=== PATIENT | female | born 1945 | race Caucasian/White ===

== ENCOUNTER 2019-08-19 08:27 | Outpatient (CLI) | payer MEDICARE, OTHER, SELFPAY ==
--- NOTE | 2019-08-19 08:40 | XR_ITS ---
WS: [id number] LEFT HIP HISTORY: HIP PAIN, LEFT Chronic, sciatica, BACK PAIN, LUMBAR pain COMPARISON: 12/17/2012 LEFT hip: No acute fracture or dislocation. Very minimal sclerosis along the superior acetabulum, sim ilar to the prior study. No bone destruction. No soft tissue abnormality. XR/XR hip LT 2-3V wo/w pel* [id number] IMPRESSION: 1. No hip fracture. 2. Minimal LEFT hip osteoarthritis. No progression since 12/17/2012.
--- NOTE | 2019-08-19 08:40 | XR_ITS ---
WS: [id number] LUMBAR SPINE: 3 VIEWS TECHNIQUE: AP, lateral and L5-S1 spot. HISTORY: HIP PAIN, LEFT Chronic, sciatica, BACK PAIN, LUMBAR pain. COMPARISON: 12/17/2012 Rotoscoliosis with convexity to the LEFT. Moderate scoliosis with mild progression of curvature since the prior study. Advanced degenerative disc disease and facet arthropathy at L5-S1. Otherwise asymme tric disc space narrowing is mild. No fractures. SI joints are symmetric bilaterally. No soft tissue abnormalities. Prior cholecystectomy. XR/XR lumbar spine 2-3V* [id number] IMPRESSION: 1. Mild progression of LEFT convex rotoscoliosis lumbar spine since 12/17/2012. 2. Advanced facet arthropathy and disc space narrowing at L5-S1. 3. Prior cholecystectomy.
== END 2019-08-19 08:28 | disposition home or self-care (01) ==
LOC: RADWPI 08:36
PROVIDERS: Family Provider Electrodiagnostic Medicine; PCP Electrodiagnostic Medicine; Visit Provider Electrodiagnostic Medicine
DX: M48.07 Spinal stenosis, lumbosacral region (principal); M16.12 Unilateral primary osteoarthritis, left hip; M54.32 Sciatica, left side; M54.16 Radiculopathy, lumbar region
CPT/HCPCS: 72100; 73502

== ENCOUNTER 2019-09-24 10:48 | Outpatient (CLI) | payer MEDICARE, OTHER, SELFPAY ==
--- NOTE | 2019-09-24 10:52 | MR_ITS ---
WS: [id number] MRI LUMBAR SPINE NONCONTRAST TECHNIQUE: Sagittal T1, T2 and STIR imaging. Axial T1 and T2 imaging. CLINICAL INFORMATION: BACK PAIN,LUMBAR WITH RADICULOPATHY, SCOLIOSIS FINDINGS: Advanced lumbar scoliosis convex left. Grade 1 anterolisthesis L5 on S1 measuring 4.8 mm. L1-L2: Mild annular bulging. Mild facet arthropathy. Spinal canal and foramen are patent. L2-L3: Mild annular bulging. Mild facet arthropathy. Spinal canal and foramen are patent. L3-L4: Mild annular bulging with narrowing of the subarticular recess bilaterally. Encroachment trave rsing L4 nerve roots. Moderate facet arthropathy. Mild right and no significant left foraminal narrow ing. Moderate facet arthropathy. L4-L5: Mild disc bulging with impingement left subarticular recess and traversing left L5 nerve root. Advanced left facet arthropathy. Mild bilateral foraminal narrowing. Mild central canal stenosis. L5-S1: 4.8 mm anterolisthesis L5 on S1. Mild annular bulging with slight effacement of the ventral th ecal sac. Advanced facet arthropathy. Moderate left foraminal narrowing. Extensive prior postoperative changes cervical fusion.Partially visualized indeterminant left renal l esion measuring 1.9 x 1.5 CM. This appears partially cystic but with suggestion of soft tissue nodula rity laterally only partially included. Recommend further evaluation with CT abdomen pelvis contrast or ultrasound. MR/MR lumbar spine wo con* [id number] IMPRESSION: 1. Advanced lumbar scoliosis convex left. No acute compression fractures. 2. Grade 1 anterolisthesis L5 on S1 measuring 4.8 mm with moderate left forami nal narrowing. Contact of the exiting left L5 nerve root with advanced left fac et arthropathy and osteophytic ridging. Correlation for left L5 nerve root symp toms. 3. Annular bulging L3-4 with slight impingement on the traversing right greate r than left L4 nerve roots in the subarticular recess. 4. Mild central canal stenosis L4-5 with impingement on the traversing left L5 nerve root in the subarticular recess. Moderate to advanced left facet arthrop athy. Mild to moderate bilateral L4-5 foraminal narrowing. 5. Partially visualized indeterminant left renal lesion measuring 1.9 x 1.5 CM . This appears mostly cystic but with suggestion of soft tissue nodularity late rally. Recommend further evaluation with CT abdomen pelvis contrast or ultrasou nd.
== END 2019-09-24 10:49 | disposition home or self-care (01) ==
PROVIDERS: Family Provider Electrodiagnostic Medicine; PCP Electrodiagnostic Medicine; Visit Provider Electrodiagnostic Medicine
DX: M54.16 Radiculopathy, lumbar region (principal); M41.86 Other forms of scoliosis, lumbar region; M48.061 Spinal stenosis, lumbar region without neurogenic claudication; N28.89 Other specified disorders of kidney and ureter
CPT/HCPCS: 72148

== ENCOUNTER 2019-10-02 12:19 | Outpatient (CLI) | payer MEDICARE, OTHER, SELFPAY ==
--- NOTE | 2019-10-02 12:26 | CT_ITS ---
WS: [id number] CT ABDOMEN AND PELVIS WITH CONTRAST HISTORY: RENAL MASS TECHNIQUE: Imaging performed of the abdomen and pelvis with IV contrast. Single phase imaging of the abdomen. Coronal and sagittal reformats are submitted. All CT scans at [facility] use at least one of these dose optimization techniques: automated exposure control; mA and/or kV adjustment per patient size (includes targeted exams where dose is matched to clinical indication); or iterativ e reconstruction. IV CONTRAST: Omnipaque 300; 95 mL IV. Oral contrast: Yes. DLP: 1030.38 mGycm COMPARISON: MRI lumbar spine 09/24/2019 Lower thorax: Benign granuloma RIGHT lung base. Heart is normal size. No hiatal hernia. Liver/biliary system: Normal size liver. Mild central biliary duct dilatation. Gallbladder: Prior cholecystectomy. Common bile duct is enlarged measuring up to 10 mm. Pancreas: Normal. Spleen: Normal size spleen with granulomata. Adrenal glands: Normal. Right kidney: Cortical hypodensities in the lower pole are too small to characterize. There is no obs truction. Left kidney: Exophytic mass from the lower pole of the LEFT kidney. No precontrast imaging was obtain ed. There is soft tissue nodularity and a few septations which do appear to be enhancing. Mass measur es 2.9 x 2.0 x 2.0 cm. No additional renal mass. Aorta: Scattered plaque within the aorta. Lymphadenopathy: None. Free fluid: None. GI tract: Prior appendectomy. No GI tract obstruction. No significant diverticular disease. Abdominal wall: Unremarkable abdominal wall. No hernia. Pelvis: No free fluid or adenopathy. Normally distended urinary bladder. Prior hysterectomy. Bones: Moderate LEFT convex curvature of the lumbar spine. Facet joint arthritis. No fracture. CT/CT abdomen pelvis w con* [id number] IMPRESSION: 1. Exophytic solid mass with septations and nodularity lower pole LEFT kidney measures 2.9 x 2.0 x 2.1 cm. Highly suspicious for renal cell neoplasm. Follow- up with urology. 2. Status post cholecystectomy. 3. Mildly dilated common bile duct and intrahepatic ducts. Probably on the bas is of the cholecystectomy.
[2019-10-02 12:50] LABS: Blood Urea Nitrogen 19 mg/dL (8-23)
[2019-10-02] MEDS: iohexol 300 mg/mL 100 mL Btl IV (12:59)
== END 2019-10-02 12:20 | disposition home or self-care (01) ==
LOC: RADWPI 12:24
PROVIDERS: Family Provider Electrodiagnostic Medicine; PCP Electrodiagnostic Medicine; Visit Provider Family Medicine
DX: N28.89 Other specified disorders of kidney and ureter (principal); K83.8 Other specified diseases of biliary tract; Z90.49 Acquired absence of other specified parts of digestive tract
CPT/HCPCS: 74177; 82565; 84520; Q9967

== ENCOUNTER 2019-10-23 11:56 | Outpatient (CLI) | payer MEDICARE, OTHER, SELFPAY ==
--- NOTE | 2019-10-23 12:06 | XR_ITS ---
WS: [id number] CHEST 2 VIEWS HISTORY: NEOPLASM MALIGNANT KIDNEY LEFT COMPARISON: None available. Lungs: Moderate pulmonary hyperinflation. Flattening of the diaphragms. No pulmonary nodule or pneumo leno. Cardiac size: Normal. Mediastinum/Aorta: Mild atherosclerosis aorta. Bones: Thoracolumbar scoliosis. No destructive bone lesions prior fusion cervical spine region. Prior cholecystectomy. XR/XR chest 2V* [id number] IMPRESSION: No pulmonary mass or nodule. Partially calcified aorta.
== END 2019-10-23 11:57 | disposition home or self-care (01) ==
LOC: RAD 12:01
PROVIDERS: Family Provider Electrodiagnostic Medicine; PCP Electrodiagnostic Medicine; Visit Provider Electrodiagnostic Medicine
DX: C64.2 Malignant neoplasm of left kidney, except renal pelvis (principal); I70.0 Atherosclerosis of aorta
CPT/HCPCS: 71046

== ENCOUNTER 2019-11-23 04:07 | Emergency (ER) | payer MEDICARE, OTHER, SELFPAY ==
[2019-11-23 04:15] VITALS: BP 151/68; PULSE 72; RESP 16; TEMP 36.6; O2SAT 95; BMI 21.9
--- NOTE | 2019-11-23 04:20 | XRR_ITS ---
PROCEDURE INFORMATION: Exam: XR Chest, 1 View Exam date and time: 11/23/2019 4:40 AM Age: 74 years old Clinical indication: Chest pain; Type not specified; Patient HX: History of renal cancer TECHNIQUE: Imaging protocol: XR of the chest Views: 1 view. COMPARISON: CR XR chest 2V* [id number] 10/23/2019 12:10 PM FINDINGS: Lungs: Unremarkable. No consolidation. Pleural space: Unremarkable. No pleural effusion. No pneumothorax. Heart/Mediastinum: Unremarkable. No cardiomegaly. Bones/joints: Unremarkable. XR/XR chest 1V portable [id number] IMPRESSION: No acute findings.
--- NOTE | 2019-11-23 04:21 | ECG_ITS ---
Measurements Intervals [place] Rate: 61 P: 78 LA: 193 QRS: 74 QRSD: 92 T: 78 QT: 415 QTc: 419 SINUS RHYTHM No previous ECG available for comparison Electronically Signed On 11-23-2019 13:07:07 CDT by Anitra Ross M.D. [email or web address]
--- NOTE | 2019-11-23 04:21 | W.ED.CHESTPA ---
Documented by User: Starr Lane 11/23/19 04:42 HPI - Chest Pain General: Chief Complaint: Chest Pain Stated Complaint: CP (ANTACID HELPS); RASH Time Seen by Provider: 11/23/19 04:14 Source: patient Mode of arrival: ambulatory Limitations: no limitations History of Present Illness: HPI narrative: Ms. Sierra is a nice 74-year-old female who comes in complaining of chest discomfort. The pain is located in the center of her chest and occurred just prior to arrival. She described as a burning or indigestion type pain that she has had multiple other times in the past. She took Mylanta and she states within 20 minutes her pain is resolved. Of greater concern to her at this time is a recurrent rash that has developed since she started taking medications for back pain. She is on tramadol and baclofen. Patient denies any throat tightening or shortness of breath. She denies any wheezing. She has any fevers or chills. Patient has no history of heart problems and she does not feel as though this was her heart. The patient is unaware of any exacerbating or alleviating factors other than Mylanta made her pain better. Associated symptoms: Deny abdominal pain, diaphoresis, dyspnea, fever(s), nausea, palpitations, syncope or vomiting Review of Systems Const: Denies: fever(s), chills, body aches, fatigue, malaise, night sweats or diaphoresis Eyes: Denies: change in vision, blurry vision or blind spots ENMT: Denies: throat pain, odynophagia, hoarseness, ear or mastoid pain, ear discharge, change in hearing or nasal discharge Card: Reports: chest pain; Denies: palpitations, irregular heart rhythm, lightheadedness, syncope, pre-syncope, dyspnea on exertion or orthopnea Resp: Denies: dyspnea, productive cough, non-productive cough, wheezing, hemoptysis or chest congestion GI: Denies: abdominal pain, nausea, vomiting, hematemesis, coffee ground emesis, heartburn, diarrhea, constipation, GI cramping, hematochezia or melena : Denies: flank pain, dysuria, urinary frequency, urinary urgency, oliguria, urinary incontinence or hematuria Musc: Denies: neck pain, back pain, extremity pain, extremity swelling, joint pain, joint swelling, joint redness, joint warmth or joint stiffness Skin/Breast: Reports: rash; Denies: pruritus, erythema, skin tenderness or jaundice Neuro: Denies: headache(s), numbness in extremities, weakness in extremities, sensory changes, lack of coordination, difficulty walking, dizziness, vertigo, confusion or Slurred speech present Endo: Denies: polyuria, polydipsia, tired all the time, cold intolerance, excessive sweating, flushing, hot flashes or heat intolerance Tree/Lymph: Denies: easy bruising, easy bleeding, petechiae, purpura or enlarged lymph nodes All/Imm: Denies: urticaria, throat swelling, tongue swelling, facial swelling or acute wheezing PFSH ED PFSH: Medical History Degenerative disc disease Hyperlipidemia Hypertension Renal cancer Surgical History H/O tubal ligation H/O: hysterectomy History of kidney surgery S/P appendectomy S/P cholecystectomy S/P ear surgery Family History (Updated 11/23/19 @ 04:[address]) Other CAD (coronary artery disease) Social History Smoking and tobacco status: never smoked Physical Exam Const: COMMON NORMALS: no acute distress, patient oriented x3, no limitations, healthy appearing and well nourished EXAM LIMITATIONS: no altered mental status GENERAL APPEARANCE: cooperative, well kempt and well developed HENMT: COMMON NORMALS: normocephalic, atraumatic, hearing grossly normal bilaterally, external ears normal, EAC's normal, Normal external nose present and moist oral mucous membranes HEAD & SCALP: normal to inspection, normocephalic and atraumatic FACE & SINUS: normal facial exam and face symmetric NOSE: Normal external nose present and Normal nares present EXTERNAL EAR: Yes external ears normal EXTERNAL AUDITORY CANAL: EAC's normal MOUTH: Normal oral and palatal mucosa present, lip normal and tongue normal Eye: COMMON NORMALS: Equal, round and reactive pupils present, EOMs intact bilaterally, conjunctivae normal and no scleral icterus GENERAL EYE: appearance normal, both eyes and all related structures ALIGNMENT: Yes alignment normal PERIORBITAL: periorbital findings normal EYELID: eyelids normal CONJUNCTIVA: Yes conjunctivae normal SCLERA: sclerae normal PUPIL: Yes Equal, round and reactive pupils present Neck/C-Spine: COMMON NORMALS: full ROM, no lymphadenopathy, supple, no meningeal signs and no JVD GENERAL: Yes normal visual inspection and Yes trachea midline CERVICAL SPINE: Yes cervical ROM normal Chest: COMMONS NORMALS: normal inspection of the chest and normal palpation of entire chest wall Resp: COMMON NORMALS: normal respiratory effort, No retractions, No use of accessory muscles and clear to auscultation bilaterally EFFORT & INSPECTION: Yes able to speak in complete sentences AUSCULTATION: clear to auscultation bilaterally, no crackles, no rales, no rhonchi and no wheezes Cardio: COMMON NORMALS: no JVD, regular rate, regular rhythm, S1 normal heart sound present, S2 normal heart sound present, No gallops present (Cardio), No clicks present (Cardio), No murmurs present (Cardio) and No rub (Cardio) RATE: regular rate RHYTHM: regular rhythm HEART SOUNDS: S1 normal heart sound present, S2 normal heart sound present, no click, no gallops, no murmurs and no rubs GI: COMMON NORMALS: Soft to palpation, non-tender, No hepatosplenomegaly present and no masses PALPATION: Yes Soft to palpation, No Tenderness to palpation present (GI), No Guarding due to palpation present (GI), No Rigid due to palpation, Yes No hepatosplenomegaly present, No Hernia present, No Palpable mass present and No Pulsatile mass present : COMMON NORMALS: Yes no CVA tenderness BLADDER/KIDNEY EXAM: Yes no CVA tenderness EXTERNAL FEMALE EXAM: No Hernia present Back/Pelvis: COMMON NORMALS: no CVA tenderness, thoracic and lumbar spine normal to inspection, no thoracic nor lumbar tenderness and thoraco-lumbar ROM normal Extremity: COMMON NORMALS: normal to inspection, full ROM, capillary refill normal, no joint enlargement, no clubbing, cyanosis or edema and no calf tenderness Neuro: COMMON NORMALS: patient oriented x3, CN's II-XII intact bilaterally, moves all extremities, no focal motor deficits and no sensory deficits noted MENINGEAL SIGNS: Yes no meningeal signs SPEECH: speech normal Psych: COMMON NORMALS: mental status grossly normal, Normal thought process present, cooperative, normal affect, speech normal and activity/motor behavior normal APPEARANCE: Yes well kempt SPEECH: Yes normal speech THOUGHT PROCESS: Normal thought process present Skin: COMMON NORMALS: turgor normal, no jaundice, no petechiae and no mottling NARRATIVE SKIN EXAM: Diffuse hives noted on extremities and trunk. No petechiae or purpura. GENERAL SKIN EXAM: turgor normal Course Vital Signs: Vital signs: Vital Signs Temperature 97.8 F 11/23/19 04:15 Pulse Rate 60 11/23/19 07:22 Respiratory Rate 18 11/23/19 07:22 Blood Pressure 130/67 11/23/19 07:22 Pulse Oximetry 96 11/23/19 07:22 MDM - Chest Pain Lab Data: Labs: Lab Results 11/23/19 11/23/19 11/23/19 Range/Units 04:25 04:25 04:25 WBC 7.7 (4.0-10.0) 10^3/ uL RBC 4.48 (4.1-5.3) 10^6/u L Hgb 12.7 (11.5-15.3) g/dL Hct 41.2 (37.0-47.0) % MCV 92.0 (81-99) fL MCH 28.3 (28.0-34.0) pg MCHC 30.8 (30.0-36.0) g/dL RDW 12.9 (12.1-15.1) % Plt Count 280 (130-400) 10^3/c mm MPV 11.3 H (7.4-10.4) fL Neut % (Auto) 58.6 % Lymph % (Auto) 31.1 % Dickson % (Auto) 7.3 % Eos % (Auto) 2.2 % Baso % (Auto) 0.4 % Neut # (Auto) 4.5 (1.8-7.7) 10^3/u L Lymph # (Auto) 2.4 (0.8-4.8) 10^3/u L Dickson # (Auto) 0.6 (0.2-0.9) 10^3/u L Eos # (Auto) 0.2 (0.0-0.8) 10^3/u L Baso # (Auto) 0.0 (0.0-0.1) 10^3/u L Nucleated RBC % (a uto) 0 % Nucleated RBCs # 0.0 /100WBC Sodium 143 (136-145) mmol/L Potassium 3.9 (3.5-5.1) mmol/L Chloride 100 (98-107) mmol/L Carbon Dioxide 30 H (22-29) mmol/L Anion Gap 16.9 (5-19) BUN 16 (8-23) mg/dL Creatinine 0.8 (0.5-0.9) mg/dL Glucose 106 (65-115) mg/dL Calculated Osmolal ity 293 (285-295) mOsm/k g Calcium 11.0 H (8.5-10.5) mg/dL Magnesium 2.5 H (1.7-2.3) mg/dL Total Bilirubin 0.3 (0.15-1.2) mg/dL AST 18 (0-32) U/L ALT 22 (0-33) U/L Alkaline Phosphata se 138 H (35-105) IU/L Troponin T Baselin e (0-10) ng/mL Troponin T 120 Min [place] (0-10) ng/mL Delta Troponin T (0-10) ABS# Total Protein 6.7 (6.6-8.7) g/dL Albumin 4.6 (3.5-5.2) g/dL Globulin 2.1 (1.3-4.6) g/dL Lipase 43 (13-60) U/L H. pylori IgG Anti body Negative (Negative) 11/23/19 11/23/19 Range/Units 04:25 06:19 WBC (4.0-10.0) 10^3/ uL RBC (4.1-5.3) 10^6/u L Hgb (11.5-15.3) g/dL Hct (37.0-47.0) % MCV (81-99) fL MCH (28.0-34.0) pg MCHC (30.0-36.0) g/dL RDW (12.1-15.1) % Plt Count (130-400) 10^3/c mm MPV (7.4-10.4) fL Neut % (Auto) % Lymph % (Auto) % Dickson % (Auto) % Eos % (Auto) % Baso % (Auto) % Neut # (Auto) (1.8-7.7) 10^3/u L Lymph # (Auto) (0.8-4.8) 10^3/u L Dickson # (Auto) (0.2-0.9) 10^3/u L Eos # (Auto) (0.0-0.8) 10^3/u L Baso # (Auto) (0.0-0.1) 10^3/u L Nucleated RBC % (a uto) % Nucleated RBCs # /100WBC Sodium (136-145) mmol/L Potassium (3.5-5.1) mmol/L Chloride (98-107) mmol/L Carbon Dioxide (22-29) mmol/L Anion Gap (5-19) BUN (8-23) mg/dL Creatinine (0.5-0.9) mg/dL Glucose (65-115) mg/dL Calculated Osmolal ity (285-295) mOsm/k g Calcium (8.5-10.5) mg/dL Magnesium (1.7-2.3) mg/dL Total Bilirubin (0.15-1.2) mg/dL AST (0-32) U/L ALT (0-33) U/L Alkaline Phosphata se (35-105) IU/L Troponin T Baselin e 10 (0-10) ng/mL Troponin T 120 Min [place] 9.65 (0-10) ng/mL Delta Troponin T -0.35 L (0-10) ABS# Total Protein (6.6-8.7) g/dL Albumin (3.5-5.2) g/dL Globulin (1.3-4.6) g/dL Lipase (13-60) U/L H. pylori IgG Anti body (Negative) Imaging Data^: CXR: Attestation: I personally reviewed and interpreted this imaging study as follows: My impression: No acute cardiopulmonary findings. EKG Data^: EKG 1: Attestation: I personally reviewed and interpreted this EKG as follows: EKG interpretation date: 11/23/19 EKG interpretation time: 04:38 Interpretation: Normal sinus rhythm at 61 beats a minute, nonspecific ST and T wave changes, normal axis, normal intervals, no blocks. Discharge Plan Discharge Patient Disposition: Home, Self-Care Clinical Impression: Atypical chest pain, Rash and nonspecific skin eruption, Chest pain due to GERD Condition: Stable Prescriptions: New cetirizine 10 mg tablet 10 mg PO BID PRN (Reason: allergy symptoms) Qty: 60 RF: 0 Protonix 40 mg tablet,delayed release (DR/EC) 40 mg PO DAILY Qty: 30 RF: 0 Discharge Orders: Discharge Order (Routine); Ordered 11/23/19 Ordered By: Robb Chinchilla Referrals: Jimmy Isaac DO [Primary Care Provider] - Discharge Diet: Usual diet Discharge Activity: Limit activity as instructed Activity Restrictions/Additional Instructions: Follow-up with Dr. Isaac within the week. shared services and outsourcing manager will call to set up a stress test. Discharge Date/Time: 11/23/19 07:22 Sign Out Sign Out Data: Patient Sign Out occurred on 11/23/19 at 06:57. Patient's care was discussed, and care was transferred from to Robb Chinchilla DO. Coding Level of Care Code ED Disk Operator for Chg Fwd Exam Comprehensive Documented by User: Robb Chinchilla DO 11/26/19 08:11 HPI - Chest Pain General: Chief Complaint: Chest Pain Stated Complaint: CP (ANTACID HELPS); RASH Time Seen by Provider: 11/23/19 04:14 PFSH ED PFSH: Medical History Degenerative disc disease Hyperlipidemia Hypertension Renal cancer Surgical History H/O tubal ligation H/O: hysterectomy History of kidney surgery S/P appendectomy S/P cholecystectomy S/P ear surgery Family History (Updated 11/23/19 @ 04:[address]) Other CAD (coronary artery disease) Social History Smoking and tobacco status: never smoked Course Vital Signs: Vital signs: Vital Signs Temperature 97.8 F 11/23/19 04:15 Pulse Rate 60 11/23/19 07:22 Respiratory Rate 18 11/23/19 07:22 Blood Pressure 130/67 11/23/19 07:22 Pulse Oximetry 96 11/23/19 07:22 MDM - Chest Pain MDM Narrative: Medical decision making narrative: Reviewed findings with the patient. We will go ahead and discharge her home Protonix for reflux also have her get cetirizine [id number] to use for the rash. Case management will set up a stress test. Her rash is very limited to her left wrist and forearm. Lab Data: Labs: Lab Results 11/23/19 11/23/19 11/23/19 Range/Units 04:25 04:25 04:25 WBC 7.7 (4.0-10.0) 10^3/ uL RBC 4.48 (4.1-5.3) 10^6/u L Hgb 12.7 (11.5-15.3) g/dL Hct 41.2 (37.0-47.0) % MCV 92.0 (81-99) fL MCH 28.3 (28.0-34.0) pg MCHC 30.8 (30.0-36.0) g/dL RDW 12.9 (12.1-15.1) % Plt Count 280 (130-400) 10^3/c mm MPV 11.3 H (7.4-10.4) fL Neut % (Auto) 58.6 % Lymph % (Auto) 31.1 % Dickson % (Auto) 7.3 % Eos % (Auto) 2.2 % Baso % (Auto) 0.4 % Neut # (Auto) 4.5 (1.8-7.7) 10^3/u L Lymph # (Auto) 2.4 (0.8-4.8) 10^3/u L Dickson # (Auto) 0.6 (0.2-0.9) 10^3/u L Eos # (Auto) 0.2 (0.0-0.8) 10^3/u L Baso # (Auto) 0.0 (0.0-0.1) 10^3/u L Nucleated RBC % (a uto) 0 % Nucleated RBCs # 0.0 /100WBC Sodium 143 (136-145) mmol/L Potassium 3.9 (3.5-5.1) mmol/L Chloride 100 (98-107) mmol/L Carbon Dioxide 30 H (22-29) mmol/L Anion Gap 16.9 (5-19) BUN 16 (8-23) mg/dL Creatinine 0.8 (0.5-0.9) mg/dL Glucose 106 (65-115) mg/dL Calculated Osmolal ity 293 (285-295) mOsm/k g Calcium 11.0 H (8.5-10.5) mg/dL Magnesium 2.5 H (1.7-2.3) mg/dL Total Bilirubin 0.3 (0.15-1.2) mg/dL AST 18 (0-32) U/L ALT 22 (0-33) U/L Alkaline Phosphata se 138 H (35-105) IU/L Troponin T Baselin e (0-10) ng/mL Troponin T 120 Min [place] (0-10) ng/mL Delta Troponin T (0-10) ABS# Total Protein 6.7 (6.6-8.7) g/dL Albumin 4.6 (3.5-5.2) g/dL Globulin 2.1 (1.3-4.6) g/dL Lipase 43 (13-60) U/L H. pylori IgG Anti body Negative (Negative) 11/23/19 11/23/19 Range/Units 04:25 06:19 WBC (4.0-10.0) 10^3/ uL RBC (4.1-5.3) 10^6/u L Hgb (11.5-15.3) g/dL Hct (37.0-47.0) % MCV (81-99) fL MCH (28.0-34.0) pg MCHC (30.0-36.0) g/dL RDW (12.1-15.1) % Plt Count (130-400) 10^3/c mm MPV (7.4-10.4) fL Neut % (Auto) % Lymph % (Auto) % Dickson % (Auto) % Eos % (Auto) % Baso % (Auto) % Neut # (Auto) (1.8-7.7) 10^3/u L Lymph # (Auto) (0.8-4.8) 10^3/u L Dickson # (Auto) (0.2-0.9) 10^3/u L Eos # (Auto) (0.0-0.8) 10^3/u L Baso # (Auto) (0.0-0.1) 10^3/u L Nucleated RBC % (a uto) % Nucleated RBCs # /100WBC Sodium (136-145) mmol/L Potassium (3.5-5.1) mmol/L Chloride (98-107) mmol/L Carbon Dioxide (22-29) mmol/L Anion Gap (5-19) BUN (8-23) mg/dL Creatinine (0.5-0.9) mg/dL Glucose (65-115) mg/dL Calculated Osmolal ity (285-295) mOsm/k g Calcium (8.5-10.5) mg/dL Magnesium (1.7-2.3) mg/dL Total Bilirubin (0.15-1.2) mg/dL AST (0-32) U/L ALT (0-33) U/L Alkaline Phosphata se (35-105) IU/L Troponin T Baselin e 10 (0-10) ng/mL Troponin T 120 Min [place] 9.65 (0-10) ng/mL Delta Troponin T -0.35 L (0-10) ABS# Total Protein (6.6-8.7) g/dL Albumin (3.5-5.2) g/dL Globulin (1.3-4.6) g/dL Lipase (13-60) U/L H. pylori IgG Anti body (Negative) Discharge Plan Discharge Patient Disposition: Home, Self-Care Clinical Impression: Atypical chest pain, Rash and nonspecific skin eruption, Chest pain due to GERD Condition: Stable Prescriptions: New cetirizine 10 mg tablet 10 mg PO BID PRN (Reason: allergy symptoms) Qty: 60 RF: 0 Protonix 40 mg tablet,delayed release (DR/EC) 40 mg PO DAILY Qty: 30 RF: 0 Discharge Orders: Discharge Order (Routine); Ordered 11/23/19 Ordered By: Robb Chinchilla Referrals: Jimmy Isaac DO [Primary Care Provider] - Discharge Diet: Usual diet Discharge Activity: Limit activity as instructed Activity Restrictions/Additional Instructions: Follow-up with Dr. Isaac within the week. shared services and outsourcing manager will call to set up a stress test. Discharge Date/Time: 11/23/19 07:22 Sign Out Sign Out Data: Patient Sign Out occurred on 11/23/19 at 06:57. Patient's care was discussed, and care was transferred from to Robb Chinchilla DO. Coding Level of Care Code ED Disk Operator for Eliecer Fwd Exam Comprehensive
--- NOTE | 2019-11-23 04:25 | PC.NURSE ---
Introduced self to patient and initiated vital signs. Patient presents A&O x 4. NAD, ABCs intact, MAEW and agreeable to treatment. Respirations are even and unlabored. Pt states that the chief complaint for the ER visit today is due to epigastric gas pain which presented yesterday after lunch and again around 0300. IV observed in left AC. Pt denies any vision disturbances or lightheadedness. Bed left in lowest position in semi-fowlers with side rails up.Reassured patient of needs and will continue to monitor. Awaiting provider at bedside.
[2019-11-23] MEDS: diphenhydrAMINE 50 mg/mL SDV 1mL 25 MG IVP (04:27)
[2019-11-23] MEDS: sodium chloride 0.9% 1,000 ML 100 ML IV (04:28)
[2019-11-23 04:52] LABS: Alanine Aminotransferase 22 U/L (0-33); Albumin Level 4.6 g/dL (3.5-5.2); Alkaline Phosphatase 138 IU/L (35-105); Anion Gap 16.9 (5-19); Aspartate Amino Transferase 18 U/L (0-32); Blood Urea Nitrogen 16 mg/dL (8-23); Carbon Dioxide 30 mmol/L (22-29); Chloride 100 mmol/L (98-107); Globulin 2.1 g/dL (1.3-4.6); Glucose 106 mg/dL (65-115); Lipase 43 U/L (13-60); Magnesium 2.5 mg/dL (1.7-2.3); Osmolality Calculated 293 mOsm/kg (285-295); Potassium 3.9 mmol/L (3.5-5.1); Sodium 143 mmol/L (136-145); Total Bilirubin 0.3 mg/dL (0.15-1.2); Total Protein 6.7 g/dL (6.6-8.7)
[2019-11-23 04:55] LABS: Troponin(5th) Baseline 10 ng/mL (0-10)
[2019-11-23 05:10] VITALS: BP 151/68; PULSE 58; RESP 16; O2SAT 96
[2019-11-23 05:10] LABS: Basophils % 0.4 %; Eosinophils # 0.2 10^3/uL (0.0-0.8); Eosinophils % 2.2 %; Hematocrit 41.2 % (37.0-47.0); Hemoglobin 12.7 g/dL (11.5-15.3); Lymphocytes # 2.4 10^3/uL (0.8-4.8); Lymphocytes % 31.1 %; Mean Corpuscular HGB Conc 30.8 g/dL (30.0-36.0); Mean Corpuscular Hemoglobin 28.3 pg (28.0-34.0); Mean Platelet Volume 11.3 fL (7.4-10.4); Monocytes # 0.6 10^3/uL (0.2-0.9); Monocytes % 7.3 %; Neutrophils # 4.5 10^3/uL (1.8-7.7); Neutrophils % 58.6 %; Nucleated Red Blood Cells % 0 %; Platelet Count 280 10^3/cmm (130-400); Red Blood Count 4.48 10^6/uL (4.1-5.3); Red Cell Distribution Width 12.9 % (12.1-15.1); White Blood Count 7.7 10^3/uL (4.0-10.0)
[2019-11-23 05:30] VITALS: BP 141/61; PULSE 58; RESP 15; O2SAT 96
[2019-11-23 05:32] LABS: H. Pylori IgG Antibody Negative (Negative)
[2019-11-23 06:00] VITALS: PULSE 57; RESP 14; O2SAT 97
--- NOTE | 2019-11-23 06:21 | ECG_ITS ---
Measurements Intervals [place] Rate: 61 P: 73 WI: 198 QRS: 62 QRSD: 94 T: 78 QT: 414 QTc: 418 SINUS RHYTHM No previous ECG available for comparison Electronically Signed On 11-23-2019 16:26:20 CDT by Anitra Ross M.D. [email or web address]
[2019-11-23 06:30] VITALS: PULSE 62; RESP 21; O2SAT 96
[2019-11-23 06:58] LABS: Troponin 5 2HR 9.65 ng/mL (0-10)
[2019-11-23 07:06] LABS: Troponin 5 2HR Delta -0.35 ABS# (0-10)
[2019-11-23 07:22] VITALS: BP 130/67; PULSE 60; RESP 18; O2SAT 96
--- NOTE | 2019-11-25 14:19 | DCPLANNER ---
print project manager had message to schedule an outpatient stress test for patient. print project manager got order signed by ED physician. print project manager called patient, to confirm that patient still wanted to have test ordered and to confirm who patient sees for primary care physician. print project manager spoke with patient, she stated that she does not want to have test ordered at this time, she states that she wants to speak with her primary physician, before having the test ordered.
== END 2019-11-23 07:22 | disposition home or self-care (01) ==
PROVIDERS: Emergency Medicine; Emergency Provider Family Medicine; Family Provider Electrodiagnostic Medicine; PCP Electrodiagnostic Medicine
DX: R07.89 Other chest pain (principal); K21.9 Gastro-esophageal reflux disease without esophagitis; R21 Rash and other nonspecific skin eruption; E78.5 Hyperlipidemia, unspecified; I10 Essential (primary) hypertension; Z85.528 Personal history of other malignant neoplasm of kidney
CPT/HCPCS: 12345; 71045; 80053; 83690; 83735; 84484; 85025; 86677; 93005; 96361; 96374; 99283; 99284; J1200; J7030

== ENCOUNTER 2020-04-06 08:17 | Outpatient (CLI) | payer MEDICARE, OTHER, SELFPAY ==
--- NOTE | 2020-04-06 08:42 | MM_ITS ---
WS: [id number] BILATERAL DIGITAL SCREENING MAMMOGRAPHY WITH CAD CLINICAL INFORMATION: SCREENING HISTORY: Screening mammogram. No current complaints. COMPARISON: TECHNIQUE: Bilateral CC and MLO views. FINDINGS: The breasts are composed of heterogeneous fibroglandular density tissue, which can limit the detectio n of small underlying mass lesions. No suspicious mass, asymmetry, calcifications, or architectural d istortion. No evidence of malignancy. Punctate and lucent centered calcifications. MM/[id number] IMPRESSION: BI-RADS: 2-Benign FOLLOW UP: 1 Year Follow-up Recommend return to annual screening mammography.
== END 2020-04-06 08:18 | disposition home or self-care (01) ==
LOC: RADSHAW 08:19
PROVIDERS: PCP Electrodiagnostic Medicine; Visit Provider Electrodiagnostic Medicine
DX: Z12.31 Encounter for screening mammogram for malignant neoplasm of breast (principal)
CPT/HCPCS: 77067

== ENCOUNTER 2021-04-23 14:43 | Outpatient (CLI) | payer MEDICARE, OTHER, SELFPAY ==
--- NOTE | 2021-04-23 14:53 | MM_ITS ---
WS: [id number] BILATERAL SCREENING DIGITAL MAMMOGRAM WITH CAD HISTORY: SCREENING COMPARISON: 04/06/2020 and 02/04/2019 Bilateral CC and MLO views submitted. Computer aided detection analyzed. Breast composition: The breasts are heterogeneously dense, which may obscure small masses. No suspici ous masses, microcalcifications or architectural distortion. Benign calcifications in each breast. MM/[id number] IMPRESSION: BI-RADS: 2-Benign FOLLOW UP: 1 Year Follow-up
== END 2021-04-23 14:44 | disposition home or self-care (01) ==
LOC: RADSHAW 14:47
PROVIDERS: PCP Electrodiagnostic Medicine; Visit Provider Electrodiagnostic Medicine
DX: Z12.31 Encounter for screening mammogram for malignant neoplasm of breast (principal)
CPT/HCPCS: 77067

== ENCOUNTER 2022-04-16 10:37 | Emergency (ER) | payer MEDICARE, OTHER, SELFPAY ==
[2022-04-16 10:37] VITALS: BP 136/115; PULSE 76; RESP 16; TEMP 37; O2SAT 98; BMI 22.2
[2022-04-16 10:42] VITALS: BP 166/72; PULSE 77; RESP 18; O2SAT 96
--- NOTE | 2022-04-16 10:48 | XRR_ITS ---
PROCEDURE INFORMATION: Exam: XR Left Knee Exam date and time: 04/16/2022 11:22 AM Age: 76 years old Clinical indication: Fall with blunt left knee trauma and pain. TECHNIQUE: Imaging protocol: Radiologic exam of the Left knee. Views: 3 views. COMPARISON: No relevant prior studies available. FINDINGS: Bones/joints: There is a mildly comminuted, distracted (2.7 cm) fracture of the central patella. Probable moderate knee joint effusion. No significant osteoarthritis is appreciated. Soft tissues: There is anterior soft tissue swelling. XR/XR knee LT 3V* [id number] IMPRESSION: 1. Mildly comminuted, distracted (2.7 cm) fracture of the central patella with associated soft tissue swelling. 2. Probable moderate knee joint effusion.
--- NOTE | 2022-04-16 11:14 | ED_ITS ---
HPI - Fall General: Chief Complaint: Fall Stated Complaint: LEFT KNEE PAIN Time Seen by Provider: 04/16/22 10:42 Source: patient Mode of arrival: EMS History of Present Illness: 76-year-old female presents emergency room after tripping and falling at home ground-level mechanical fall she landed on her left knee. She has a large amount of swelling unable to flex or extend can partially bear weight with severe pain did not strike her head no other injuries no loss of consciousness MD complaint: fall Onset (ago): minute(s) Fall from: standing Fall witnessed: no Place fall occurred: home Loss of consciousness: None Prolonged down time: no Context: tripped/slipped Location of injury - extremities: Left: knee Severity: moderate Quality: sharp Associated symptoms-after fall: Reports difficulty walking; Denies abdominal pain, chest pain, confusion, headache(s), hematuria, lightheadedness, neck pain, numbness, short of breath, vertigo or weakness Review of Systems Const: Denies: fever(s), chills, body aches, change in appetite, fatigue or malaise ENMT: Denies: throat pain, ear or mastoid pain, nasal discharge or nasal congestion Card: Denies: chest pain or lightheadedness Resp: Denies: dyspnea, productive cough or non-productive cough GI: Denies: abdominal pain : Denies: hematuria Musc: Denies: neck pain Skin/Breast: Denies: rash or pruritus Neuro: Reports: difficulty walking; Denies: headache(s), vertigo or confusion PFS ED PFSH: Medical History (Updated 04/16/22 @ 11:30 by Robb Chinchilla DO) Degenerative disc disease Hyperlipidemia Hypertension Renal cancer Surgical History H/O tubal ligation H/O: hysterectomy History of kidney surgery S/P appendectomy S/P cholecystectomy S/P ear surgery Family History Other CAD (coronary artery disease) Social History Smoking and tobacco status: never smoked Physical Exam Const: GENERAL APPEARANCE: cooperative and comfortable ORIENTATION/CONSCIOUSNESS: Yes awake, Yes oriented to person, Yes oriented to place and Yes oriented to time HENMT: COMMON NORMALS: normocephalic, atraumatic and hearing grossly normal bilaterally HEAD & SCALP: normocephalic and atraumatic Resp: COMMON NORMALS: normal respiratory effort, No retractions, No use of accessory muscles and clear to auscultation bilaterally AUSCULTATION: clear to auscultation bilaterally Cardio: COMMON NORMALS: regular rate, regular rhythm and No murmurs present (Cardio) RATE: regular rate RHYTHM: regular rhythm GI: COMMON NORMALS: Soft to palpation and No hepatosplenomegaly present AUSCULTATION: Yes normoactive bowel sounds PALPATION: Yes Soft to palpation, No Tenderness to palpation present (GI), No Guarding due to palpation present (GI) and Yes No hepatosplenomegaly present Extremity: OTHER: Swelling of the left knee. No obvious deformity. Able to flex and extend no deformity with varus or valgus stress drawer sign negative. Nixon's negative. Neuro: SENSORIUM/ORIENTATION: Yes oriented to person, Yes oriented to place and Yes oriented to time Skin: COMMON NORMALS: no rashes or lesions noted GENERAL SKIN EXAM: no rashes or lesions noted Course Vital Signs: Vital signs: Vital Signs Temperature 98.6 F 04/16/22 10:37 Pulse Rate 65 04/16/22 11:50 Respiratory Rate 17 04/16/22 11:50 Blood Pressure 160/61 04/16/22 11:50 Pulse Oximetry 98 04/16/22 11:50 Oxygen Delivery Me thod 04/16/22 10:42 MDM - Fall Medical Decision Making Place patellar fracture. Placed patient knee immobilizer nonweightbearing on the left leg hydrocodone for pain ice elevation follow-up with Ortho Medical Records I reviewed the patient's medical records. Lab Data I reviewed the patient's lab results. Discharge Plan Discharge Patient Disposition: Home Clinical Impression: Fracture, patella Condition: Stable Prescriptions: New hydrocodone-acetaminophen 5-325 mg tablet 1 tab PO Q6H PRN (Reason: pain) Qty: 20 0RF No Action cetirizine 10 mg tablet 10 mg PO BID PRN (Reason: allergy symptoms) Qty: 60 0RF Protonix 40 mg tablet,delayed release (DR/EC) 40 mg PO DAILY Qty: 30 0RF Discharge Orders: Discharge ED (Routine); Ordered 04/16/22 Ordered By: Robb Chinchilla Referrals: Jimmy Isaac, [Primary Care Provider] - Discharge Diet: Usual diet Discharge Activity: Limit activity as instructed Activity Restrictions/Additional Instructions: Wear knee immobilizer and use crutches nonweightbearing on the left leg until you are seen by orthopedics. Case management make arrangements for you to follow-up with Ortho this coming week. Coding Level of Care Code ED Thermal Surfacing Machine Operator for Chg Fwd Exam Detailed
[2022-04-16 11:50] VITALS: BP 160/61; PULSE 65; RESP 17; O2SAT 98
== END 2022-04-16 11:52 | disposition home or self-care (01) ==
PROVIDERS: Emergency Provider Family Medicine; PCP Electrodiagnostic Medicine
DX: S82.042A Displaced comminuted fracture of left patella, initial encounter for closed fracture (principal); E78.5 Hyperlipidemia, unspecified; I10 Essential (primary) hypertension; Z85.528 Personal history of other malignant neoplasm of kidney; W01.0XXA Fall on same level from slipping, tripping and stumbling without subsequent striking against object, initial encounter
CPT/HCPCS: 29530; 73562; 99283; E0114

== ENCOUNTER → 2022-04-21 13:27 | Outpatient (BNVA) | payer MEDICARE, OTHER, SELFPAY | PROVIDERS: PCP Electrodiagnostic Medicine; Visit Provider Physician Assistant | DX: S82.002A Unspecified fracture of left patella, initial encounter for closed fracture (principal); W19.XXXA Unspecified fall, initial encounter | CPT/HCPCS: 73560; 99204 ==

== ENCOUNTER 2022-04-25 12:13 | Day surgery (SDC) | payer MEDICARE, OTHER, SELFPAY ==
[2022-04-22 11:13] VITALS: BMI 21.9
[2022-04-25] VITALS (10 sets, daily range): BP systolic 135–163; BP diastolic 46–79; PULSE 71–81; RESP 13–20; TEMP 36.5–36.7; O2SAT 93–99
--- NOTE | 2022-04-25 | SCC_ITS ---
Procedure done: Left patella open reduction internal fixation 35.3 seconds of fluoroscopic guidance, for a cumulative dose of 1.65 mGy, was provided to Dr. Nunes by the radiology department. C-arm images of the left patella were saved for the patient's permanent record. AMARILIS
[2022-04-25] MEDS: acetaminophen 1,000 MG/100 ML PIGGYBACK 400 MG IV (12:50)
[2022-04-25] MEDS: sodium chloride 0.9% 1,000 ML 30 ML IV (13:02)
--- NOTE | 2022-04-25 14:06 | ANES.PREANE2 ---
Pre-Anesthetic Assessment Height/Weight: Height 1.7 m Weight 63.503 kg Preop Diagnosis: Displaced left patella fracture Operation Date: 04/25/22 14:00 Proposed Procedures p LEFT KNEE PATELLAR OPEN REDUCTION INTERNAL FIXATION 23076,T14.8XXA(Left) - Usman Nunes DO Familial anesthetic complications: None Was Beta Larry taken within 24 hours: N/A Was Clonidine taken within 24 hours: N/A Last intake: Intake Last Liquid Date 04/24/22 Last Liquid Time 18:00 Last Solid Date 04/24/22 Last Solid Time 18:00 Social No alcohol and No tobacco Exam alert, oriented x 3, clear to auscultation bilaterally and regular rate & rhythm Airway Mallampati: Class II Dentition: full CV/HEM Hypertension Hx renal cancer GI Gastroesophageal Reflux Disease Metabolic Hyperlipidemia Anesthetic Plan ASA status: 3 Anesthesia: General Risk of > 500 ml blood loss (7ml/kg in children): No Medications/Allergies Home Medications Medication Instructions Recorded Confirmed Last Taken Type pantoprazole 40 mg tablet,delayed 40 mg PO DAILY #30 tabs 11/23/19 04/25/22 04/24/22 Rx release (Protonix) aspirin 325 mg tablet 325 mg PO DAILY 04/22/22 04/25/22 04/21/22 History baclofen 10 mg tablet 10 mg PO BID 04/22/22 04/25/22 04/24/22 History hydrocodone 5 mg-acetaminophen 325 1 tab PO Q6H PRN pain 7 days #28 04/22/22 04/25/22 04/24/22 Rx mg tablet tabs meloxicam 7.5 mg tablet 7.5 mg PO DAILY 04/22/22 04/25/22 04/24/22 History simvastatin 20 mg tablet 20 mg PO DAILY 04/22/22 04/25/22 04/24/22 History tramadol 50 mg tablet 50 mg PO TID PRN Pain 04/22/22 04/22/22 Unknown History valsartan 80 1 tab PO DAILY 04/22/22 04/25/22 04/24/22 History mg-hydrochlorothiazide 12.5 mg tablet Allergies Allergy/AdvReac Type Severity Reaction Status Date / Time acetaminophen [From Percocet] Allergy ADR-Vomitin Verified 04/25/22 12:35 g codeine Allergy ADR-Vomitin Verified 04/25/22 12:32 g oxycodone [From Percocet] Allergy ADR-Vomitin Verified 04/25/22 12:35 g sulfamethoxazole Allergy ALGY-Hives Verified 04/25/22 12:32 [From Bactrim] trimethoprim [From Bactrim] Allergy ALGY-Hives Verified 04/25/22 12:32 Current Medications Generic Name Dose Route Start Last Admin Trade Name Freq PRN Reason Stop Dose Admin Sodium Chloride 1,000 mls @ 30 mls/hr 04/25/22 13:00 04/25/22 13:02 Sodium Chloride 0.9% IV 30 mls/hr .Q24H TITI Administration PFSH Anesthesia Medical History (Updated 04/24/22 @ 00:00 by ) Degenerative disc disease Hyperlipidemia Hypertension Renal cancer Surgical History H/O tubal ligation H/O: hysterectomy History of kidney surgery S/P appendectomy S/P cholecystectomy S/P ear surgery Family History Other CAD (coronary artery disease) Social History Smoking and tobacco status: never smoked Data Anesthesia Cardiac Studies: No Data to Display
[2022-04-25] MEDS: fentaNYL 50 mcg/mL INJ 2mL 100 MCG IVP (14:25)
--- NOTE | 2022-04-25 14:29 | ANES.PROC ---
Anesthesia Procedures Procedure/Date: 04/25/22 Nerve Block ^: Nerve Block 1: Main Anesthesia: general anesthesia Time Out Performed: Yes Consent: requested by attending/covering physician, from patient, risks and benefits reviewed and patient agrees to proceed Nerve block location: adductor canal (L) Anesthesia monitors applied: pulse oximetry, EKG, BP cuff and oxygen Nerve block position: semi sitting Anesthetic Used: ropivicaine 0.5% (30 ml) and with decadron (4 mg) Ultrasound used to: recognize landmarks and visualize and ID femerol nerve Nerve Stimulator Used?: No Interscalene/Femoral BLK: 4 stimuplex 21 g needle used for position and inplane approach, visualize local anesthetic spread and no vascular puncture identified Injection: neg aspiration of heme Patient Tolerated Procedure: well and no complications
--- NOTE | 2022-04-25 14:44 | W.PM.OPSUD ---
Surgery/Procedure H&P Update DATE OF PROCEDURE: April 25, 2022 DATE H&P PERFORMED: 04/21/22 CHANGES TO PREVIOUS DOCUMENTATION: None PREOP DIAGNOSIS: Displaced left patella fracture PRIMARY INDICATION FOR PROCEDURE: Displaced Left Patella Fracture PLANNED PROCEDURE: Operation Date: 04/25/22 14:00 Proposed Procedures p LEFT KNEE PATELLAR OPEN REDUCTION INTERNAL FIXATION 17181,T14.8XXA(Left) - Usman Nunes DO
[2022-04-25] MEDS: ceFAZolin 2,000 MG in sodium chloride 0.9% (plus) 50 ML 100 MG IV (14:50)
--- NOTE | 2022-04-25 16:24 | P.OP_ITS ---
Brief Operative Note Date of procedure: 04/25/22 Pre-op diagnosis: Displaced left patella fracture Post-op diagnosis: same Procedure Done: Left patella open reduction internal fixation Surgeon: Usman Nunes Estimated blood loss (mL): 10 Complications: None Post-op Plan: Patient to recover in PACU. Patient will be given appropriate discharge instructions as well as pain medication and DVT prophylaxis. Patient will be in knee immobilizer and should not bend knee. Patient may weight-bear as tolerated in knee immobilizer. Should utilize 4 leg walker. Patient will follow-up in the orthopedic office in 2 weeks. Condition: stable Disposition: same day Coding Level of Care Code Acute Battery Tester Field for Eliecer Pack
--- NOTE | 2022-04-25 16:25 | PM.PACU ---
PACU note Narrative: Patient seen and evaluated in PACU. Left lower extremity is warm well perfused. Distal pulses are palpable. Dressing on in place clean dry and intact with knee immobilizer. Patient can wiggle toes as well as plantarflex and dorsiflex ankle. Exam: awake (See narrative for detailed examination.) Disposition: discharged
--- NOTE | 2022-04-25 16:27 | P.OP_ITS ---
Operative Report Date of procedure: April 25, 2022 Pre-op diagnosis: Preop Diagnosis Displaced left patella fracture Post-op diagnosis: same Procedure done: Left patella open reduction internal fixation Implants: 2 x 4.0 mm x 34 mm [employer] headed partially threaded cannulated screws Arthrex patella fiber tape x2 Surgeon: Usman Nunes DO Estimated blood loss (mL): 10 48 minutes IV fluids: See anesthesia record Complications: None Findings: See operative report narrative Condition: stable Disposition: same day Brief History: Jolene is a pleasant 76-year-old female who was seen in the outpatient setting after sustaining a displaced left patella fracture. In the outpatient setting we had detailed discussion with her about her treatment options. She had significant almost 3 cm of diastases or distraction at the fracture site and. She is unable to perform a straight leg raise due to lack of intact of the extensor mechanism and patient's relatively active would recommend surgical intervention of left patella open reduction internal fixation. Had detailed discussion with her about her treatment options far as nonoperative and operative invention. Talked about the risk benefits complications alternatives to each treatment option. Risk include with surgery but not limited to make it better, make it worse, blood clot, heart attack, stroke, on the table, hardware failure, malunion, nonunion, decreased range of motion of the knee, infection. With these understandings of the risks she understands and agrees to proceed with surgical intervention. We obtained the consent in office. Shared decision making patient agrees to proceed with surgical intervention. All questions answered at this time. Procedure: Patient seen evaluated in preoperative holding area. Consent was reviewed with patient. Correct extremity was then marked. Seen and evaluated by the anesthesia department. Once patient was cleared for anesthesia from the preoperative team she was taken back to the operative suite. She was subsequently placed in supine position on the OR table. Underwent anesthesia per the anesthesia department. Once appropriately anesthetized the left lower extremity a nonsterile tourniquet was then applied. We then prepped and draped the left lower extremity in standard orthopedic fashion. Patient was appropriately secured to the table and all bony prominences were well-padded. At this point time I brought in the mini C arm to confirm I had appropriate visualization x-rays of the fracture which showed again persistent diastases at the fracture site and displacement of left patella fracture and an incongruent patellofemoral joint. Patient received appropriate preoperative antibiotics final timeout performed. Esmarch tourniquet was used exsanguinate the left lower extremity to 250 mmHg. Standard midline incision was made centered over the fracture site. Sharp scalpel excision through skin and subcutaneous tissue mobilized full-thickness skin flaps over the extensor retinaculum. I then immediately encountered fracture hematoma at the fracture site at the distal third of the patella. This fracture was transverse in nature mild comminution was noted superficially however this appeared to be amendable with cannulated screws and xalgah-fr-qzkkq tight rope fixation. At this point time I evacuated the fracture hematoma thoroughly irrigated the wound bed. I then mobilized the soft tissue flaps to allow for appropriate cortical read at the patella. I then take that [id number]-it-[id number] tenaculum. This was placed close to the articular surface to allow appropriate compression at the articular surface to allow for no joint gapping. I achieved my anatomic reduction. This was confirmed with a large fluoroscopic C arm in multiple orthogonal images. Once I was satisfied with my placement I then placed 2 K wires in parallel fashion for Gena 4 oh cannulated screws that were partially threaded. These were then advanced from anterior inferior to superior and parallel fashion. These were new measured right up to the cortex I then took 2 off and subsequently selected for 34 mm headed partially-threaded cannulated 4 oh Gena screws. This point time I advanced the K wires and these were captured superiorly and clamped with a needle driver examiner. I then predrilled both of these and subsequently placed 2 4.0 mm [employer] headed cannulated screws 34 mm these had excellent compression and were noted to be not too proud superiorly in order to eliminate the chance of cutting my suture for my ktdegu-bo-qoafo tension band. At this point time I was satisfied with my screw fixation of the implant for my tension band with Arthrex suture tape. Cut off a fiber loop needle and then shuttled the fiber tape utilizing the eyelet through both screws to create a irwpuu-ip-xcjyt pattern. At this point time I then tied multiple surgeons knots to secure my ddzhpw-bt-kqqst tension band construct with cannulated screws. This had excellent tension and fixation. Once timeout was then tied I then unplugged my clamp took final x-rays which showed stable fixation and articular congruent patella fracture. I then stressed the fixation and bent the knee to roughly 45 with no fracture or diastases. At this point time I then cut my suture. In order to backup my fixation I then loaded fiber tape on a suture and then performed a running cerclage circumferentially around the retinaculum as well as the patella circumferentially and then tied this superiorly which had excellent fixation and augmented fixation. I then utilized 2-0 FiberWire to repair the medial and lateral retinaculum from the patellar fracture. This had excellent secured closure and fixation. Knots were tied and then cut. At this point time I then approximated the deep subcutaneous tissue with 0 Vicryl. Tourniquet was deflated hemostasis was satisfactory with electrocautery. Then closed the subcutaneous layer with 2-0 Vicryl and kaya for skin. Xeroform was placed over the skin as well as 4 x 4's ABD Curlex soft roll and an Luis wrap. A knee immobilizer was applied to the left knee and will be kept in place and should remain on until follow-up except for dressing change. Patient was then awakened from anesthesia and taken to PACU in stable condition Disposition: Patient in PACU in stable condition. Will discharge later today. Given appropriate DVT prophylaxis pain medication postoperatively. Patient may be weightbearing as tolerated to the left lower extremity while in knee immobilizer should utilize a walker for safety. She should not bend and remain in knee immobilizer at all times May take down her dressing in 72 hours. She is given appropriate discharge instructions. Patient will follow-up with Dr. Nunes in the office in 2 weeks. Patient and understand agree with current plan. All questions answered. They understand they have any questions or concerns they can contact the office.
[2022-04-25] MEDS: fentaNYL 50 mcg/mL INJ 2mL IVP (16:28)
--- NOTE | 2022-04-25 16:28 | XR_ITS ---
WS: [id number] C-ARM RADIOGRAPHS PATELLA; 4 IMAGES HISTORY: OR PICS COMPARISON: 04/21/2022 Intraoperative screw fixation of the patellar fracture. Patellar fracture has been realigned and now in good position. XR/XR patella LT 1-2V [id number] IMPRESSION: ORIF with reduction patellar fracture.
--- NOTE | 2022-04-25 17:46 | ANE.PACU2 ---
Inpatient post-anesthesia follow up: Airway intact: Yes Vital signs: Temperature 97.7 F Pulse Rate 77 Respiratory Rate 16 Blood Pressure 155/46 Pulse Oximetry 96 Oxygen Delivery Me thod Room Air Oxygen Flow Rate Fraction of Inspir ed Oxygen Hydration adequate: Yes Nausea and vomiting: No Pain level: 1 Mental status: Baseline
== END 2022-04-25 17:39 | disposition home or self-care (01) ==
PROVIDERS: PCP Electrodiagnostic Medicine; Visit Provider Student in an Organized Health Care Education/Training Program
PROC: (CPT 27524; principal; 2022-04-25 14:00)
DX: S82.002A Unspecified fracture of left patella, initial encounter for closed fracture (principal); W19.XXXA Unspecified fall, initial encounter; Y92.002 Bathroom of unspecified non-institutional (private) residence as the place of occurrence of the external cause; I10 Essential (primary) hypertension; K21.9 Gastro-esophageal reflux disease without esophagitis; E78.5 Hyperlipidemia, unspecified; Z79.82 Long term (current) use of aspirin; Z85.528 Personal history of other malignant neoplasm of kidney
CPT/HCPCS: 27524; 73560; 76000; C1713; J1100; J2405; J2704; J2795; J3010; J3490; J7030

== ENCOUNTER 2022-04-28 11:57 | Outpatient (CLI) | payer MEDICARE, OTHER, SELFPAY | END 2022-04-28 11:58 | disposition home or self-care (01) | LOC: SPT 11:58 | PROVIDERS: PCP Electrodiagnostic Medicine; Visit Provider Student in an Organized Health Care Education/Training Program | DX: Z46.89 Encounter for fitting and adjustment of other specified devices (principal); S82.092D Other fracture of left patella, subsequent encounter for closed fracture with routine healing; X58.XXXD Exposure to other specified factors, subsequent encounter | CPT/HCPCS: 97760; 99024; L1832 ==

== ENCOUNTER → 2022-05-09 09:00 | Outpatient (BNVA) | payer MEDICARE, OTHER, SELFPAY | PROVIDERS: PCP Electrodiagnostic Medicine; Visit Provider Student in an Organized Health Care Education/Training Program | DX: S82.002D Unspecified fracture of left patella, subsequent encounter for closed fracture with routine healing (principal); X58.XXXD Exposure to other specified factors, subsequent encounter | CPT/HCPCS: 73560; 99024 ==

== ENCOUNTER 2022-05-13 06:00 | Outpatient (RCR) | payer MEDICARE, OTHER, SELFPAY | END 2022-06-08 23:59 | disposition home or self-care (01) | LOC: SPT 06:00 | PROVIDERS: PCP Electrodiagnostic Medicine; Visit Provider Student in an Organized Health Care Education/Training Program | DX: Z47.89 Encounter for other orthopedic aftercare (principal) | CPT/HCPCS: 97110; 97140; 97161 ==

== ENCOUNTER 2022-06-09 06:00 | Outpatient (RCR) | payer MEDICARE, OTHER, SELFPAY | END 2022-07-09 23:59 | disposition home or self-care (01) | LOC: SPT 06:00 | PROVIDERS: PCP Electrodiagnostic Medicine; Visit Provider Student in an Organized Health Care Education/Training Program | DX: Z47.89 Encounter for other orthopedic aftercare (principal); M25.562 Pain in left knee | CPT/HCPCS: 73560; 97110; 99024 ==

== ENCOUNTER 2022-07-10 06:00 | Outpatient (RCR) | payer MEDICARE, OTHER, SELFPAY | END 2022-07-25 23:59 | disposition home or self-care (01) | LOC: SPT 06:00 | PROVIDERS: PCP Electrodiagnostic Medicine; Visit Provider Student in an Organized Health Care Education/Training Program | DX: Z47.89 Encounter for other orthopedic aftercare (principal); M25.562 Pain in left knee | CPT/HCPCS: 97110 ==

== ENCOUNTER → 2022-07-14 14:06 | Outpatient (BNVA) | payer MEDICARE, OTHER, SELFPAY | PROVIDERS: PCP Electrodiagnostic Medicine; Visit Provider Student in an Organized Health Care Education/Training Program | DX: S82.002A Unspecified fracture of left patella, initial encounter for closed fracture (principal); X58.XXXA Exposure to other specified factors, initial encounter | CPT/HCPCS: 73560; 99024 ==

== ENCOUNTER → 2023-09-07 11:14 | Outpatient (BNVA) | payer MEDICARE, OTHER, SELFPAY | PROVIDERS: PCP Electrodiagnostic Medicine; Visit Provider Podiatrist Foot & Ankle Surgery | DX: L60.3 Nail dystrophy (principal) | CPT/HCPCS: 99203 ==

== ENCOUNTER → 2023-10-12 09:03 | Outpatient (BNVA) | payer MEDICARE, OTHER, SELFPAY | PROVIDERS: PCP Electrodiagnostic Medicine; Visit Provider Podiatrist Foot & Ankle Surgery | DX: L60.3 Nail dystrophy (principal) | CPT/HCPCS: 11750 ==

== ENCOUNTER → 2023-10-26 09:10 | Outpatient (BNVA) | payer MEDICARE, OTHER, SELFPAY | PROVIDERS: PCP Electrodiagnostic Medicine; Visit Provider Podiatrist Foot & Ankle Surgery | DX: L60.8 Other nail disorders (principal); Z98.890 Other specified postprocedural states | CPT/HCPCS: 99213 ==

== ENCOUNTER → 2024-03-19 15:02 | Outpatient (BNVA) | payer MEDICARE, OTHER, SELFPAY | PROVIDERS: PCP Electrodiagnostic Medicine; Visit Provider Internal Medicine Cardiovascular Disease | DX: R00.1 Bradycardia, unspecified (principal); R06.09 Other forms of dyspnea; I10 Essential (primary) hypertension; E78.2 Mixed hyperlipidemia | CPT/HCPCS: 99215 ==

== ENCOUNTER 2024-03-27 05:56 | Outpatient (CLI) | payer MEDICARE, OTHER, SELFPAY ==
--- NOTE | 2024-03-27 06:15 | USCV_ITS ---
Jolene Sierra Age: 78 Gender: F : 1945 Exam Date: 03/27/2024 06:09 Ordering Phys: Yamilet Hamilton MD ([email or web address]) Technologist: Exam Location: [facility] [place] Indication: antoni cardia BP: 120 / 70 HR: 288 Rhythm: Sinus Technical Quality: Adequate MEASUREMENTS (Male / Female) Normal Values 2D ECHO LV Diastolic Diameter PLAX 5.1 cm 4.2 - 5.9 / 3.9 - 5.3 cm IVS Diastolic Thickness 0.8 cm 0.6 - 1.0 / 0.6 - 0.9 cm IVS Systolic Thickness 1.5 cm LVPW Diastolic Thickness 1.0 cm 0.6 - 1.0 / 0.6 - 0.9 cm LVPW Systolic Thickness 1.5 cm LVOT Diameter 2.1 cm LV Ejection Fraction 2D Teich 69.4 % LV Ejection Fraction MOD 4C 67.6 % LV Ejection Fraction MOD 2C 55.0 % LV Ejection Fraction 2C AL 55.7 % LA Diameter 3.2 cm RA Systolic Volume 4C AL 52.2 ml RA Systolic Volume 4C MOD 46.3 ml Aorta at Sinotubular Diameter 2.5 cm M-MODE LA Ao Ratio MM 1.2 AV Cusp Separation MM 1.9 cm DOPPLER AV Peak Velocity 79.3 cm/s LVOT Peak Velocity 78.0 cm/s AV Area Cont Eq vti 3.4 cm squared AV Area Cont Eq pk 3.4 cm squared MV Area PHT 3.2 cm squared Mitral E to A Ratio 2.4 TV Peak Velocity 186.5 cm/s TR Peak Velocity 286.0 cm/s TR Peak Gradient 32.7 mmHg TV Peak E Velocity 96.0 cm/s Right Atrial Pressure 3.0 mmHg Pulmonary Artery Systolic Pressu 35.7 mmHg PV Peak Velocity 95.0 cm/s FINDINGS Left Ventricle Normal LV size ejection fraction of 60%. No gross wall motion abnormalities. Right Ventricle The right ventricle is normal in size and function. Right Atrium The right atrium is normal in size. Left Atrium Mildly increased left atrial size. Mitral Valve Thickened mitral valve. Mild-moderate mitral valve regurgitation. Aortic Valve Trace aortic valve regurgitation. Tricuspid Valve Trace tricuspid valve regurgitation. Estimated pulmonary artery peak systolic pressure 36 mmHg Pulmonic Valve Trace pulmonary valve regurgitation. Pericardium Normal pericardium without effusion. Aorta Normal ascending aorta dimension. IVC Normal inferior vena cava. CONCLUSIONS Normal LV size ejection fraction of 60%. No gross wall motion abnormalities. Thickened mitral valve. Mild-moderate mitral valve regurgitation. Trace aortic valve regurgitation. Trace tricuspid valve regurgitation. Estimated pulmonary artery peak systolic pressure 36 mmHg. Trace pulmonary valve regurgitation. There is no pericardial effusion. There are no intracardiac masses. No similar previous studies are available for comparison Dr Yamilet Hamilton MD [facility] (Electronically Signed) Final Date: 31 March 2024 19:04 S
== END 2024-03-27 05:57 | disposition home or self-care (01) ==
LOC: RAD 05:57
PROVIDERS: PCP Electrodiagnostic Medicine; Visit Provider Internal Medicine Cardiovascular Disease
DX: I34.0 Nonrheumatic mitral (valve) insufficiency (principal); R06.09 Other forms of dyspnea
CPT/HCPCS: 93306

== ENCOUNTER 2024-04-12 06:00 | Outpatient (CLI) | payer MEDICARE, OTHER, SELFPAY ==
[2024-04-12] VITALS (12 sets, daily range): BP systolic 107–166; BP diastolic 54–75; PULSE 42–62; RESP 15–18; TEMP 36.4–37.1; O2SAT 93–98; BMI 21.6
[2024-04-12 06:22] LABS: Basophils % 0.3 %; Eosinophils # 0.2 10^3/uL (0.0-0.8); Eosinophils % 3.1 %; Hematocrit 43.6 % (36-47); Lymphocytes # 2.1 10^3/uL (0.8-4.8); Lymphocytes % 28.8 %; Mean Corpuscular HGB Conc 32.3 g/dL (30-55); Mean Corpuscular Hemoglobin 27.9 pg (27-33); Mean Corpuscular Volume 86.2 fl (85-98); Mean Platelet Volume 10.9 fL (7.4-10.4); Monocytes # 0.5 10^3/uL (0.2-0.9); Monocytes % 7.5 %; Neutrophils # 4.33 10^3/uL (1.8-7.7); Nucleated Red Blood Cells % 0 %; Platelet Count 240 10^3/cmm (157-399); Red Blood Count 5.06 10^6/uL (3.85-5.65); Red Cell Distribution Width 13.1 % (12.1-15.1); White Blood Count 7.21 10^3/uL (3.29-11.43)
[2024-04-12 06:39] LABS: Anion Gap 13.8 (5-19); Blood Urea Nitrogen 24 mg/dL (8-23); Calcium 9.9 mg/dL (8.5-10.5); Carbon Dioxide 29 mmol/L (22-29); Chloride 101 mmol/L (98-107); Creatinine Clr Calc Pharmacy 41.9194; Glucose 89 mg/dL (65-115); Osmolality Calculated 294 mOsm/kg (285-295); Potassium 3.8 mmol/L (3.5-5.1); Sodium 140 mmol/L (136-145)
--- NOTE | 2024-04-12 07:06 | W.PM.OPSUD ---
Surgery/Procedure H&P Update DATE OF PROCEDURE: April 12, 2024 DATE H&P PERFORMED: 03/19/24 H&P UPDATE INFORMATION: I have reviewed H&P completed within last 30 days, I have examined patient prior to procedure and No changes to prior documentation PREOP DIAGNOSIS: Sick sinus syndrome/symptomatic bradycardia PRIMARY INDICATION FOR PROCEDURE: Episodes of dizziness/near syncope. Symptomatic bradycardia/sinus pauses/sick sinus syndrome PLANNED PROCEDURE: Operation Date: 04/12/24 08:30 Proposed Procedures p Pacemaker Insertion - Insert Dual PPM(Not Applicable) - Yamilet Hamilton MD PATIENT REASSESSED PRIOR TO SEDATION, WITH NO CHANGE NOTED: Yes PHYSICAL EXAM: alert, oriented x 3, clear to auscultation bilaterally and regular rate & rhythm AIRWAY EVAL/ANESTHESIA PLAN: normal airway, see other exam findings, ASA III, Monitored Anesthesia, Local Anesthesia, Risks, benefits & alternatives of sedation and/or procedure discussed and Patient agrees to continue as planned
--- NOTE | 2024-04-12 09:46 | P.OP_ITS ---
Operative Report Date of procedure: April 12, 2024 Surgeon: Yamilet Hamilton MD Procedure: LOCATION: PREOPERATIVE DIAGNOSES: Sick sinus syndrome/symptomatic bradycardia. POSTOPERATIVE DIAGNOSES: Same. COMPLICATIONS: None. ESTIMATED BLOOD LOSS: None BRIEF HISTORY: This is a 78-year-old white female presented with present with complaints of weakness/dizziness/near syncopal episodes. She was found to be bradycardic with a heart rate in the 40s and sinus pauses of more than 3 seconds. For further management of her condition, a permanent pacemaker plantation was recommended. A dual chamber permanent pacemaker implantation was recommended for AV synchrony and symptom relief The procedure was explained to the patient in detail with the risks and benefits. The risks of bleeding, hematoma, vascular injury, infection, pneumothorax, myocardial perforation and other concomitant complications were explained in detail, which the patient understood well and consented to proceed. PROCEDURE DESCRIPTION: The patient was brought to the Cardiac Catheterization Lab. The left and the right side of the neck and the subclavian area were cleaned and draped in a sterile fashion. 1% Xylocaine was used as the local anesthetic agent. Left subclavian venogram was performed by injecting 20 milliliters of Omnipaque through the left antecubital vein. A left subclavian venous access was obtained using a micropuncture needle system, under venographic guidance. . A two-inch long incision was made 2.0 centimeters below the midclavicular region. By sharp and blunt dissection, a pacemaker pocket was made. A second venous access was obtained using another micropuncture needle system. Over the first guidewire, a 7-Marshallese venous sheath with dilator was advanced. The venous dilator and the guidewire were taken out. A screw-in ventricular lead was advanced through the venous sheath and was positioned towards the right ventricle. Under fluoroscopic guidance, the ventricular lead was positioned toward the right ventricular apex. Good pacing and sensing thresholds were obtained. The lead was secured to the endocardium by advancing the helix. The stability of the lead was tested by gentle twisting movements and also by asking the patient to take some deep breaths and cough. The venous sheath was peeled off, at this time. The lead was secured to the pectoralis fascia, by suturing with 1-0 Surgilon. Over the second guidewire, another 7- Marshallese venous sheath with dilator was advanced. The dilator and the guidewire were taken out. Under fluoroscopic guidance, an atrial lead (Medtronic), was advanced and positioned toward the right atrium. The lead was positioned in the right atrial appendage. Good pacing and sensing thresholds were obtained. The lead was secured to the endocardium by advancing the helix. Stability of the lead was tested by gentle twisting movements and also by asking the patient to take some deep breaths and cough. The venous sheath was peeled off, at this time. The lead was secured to the pectoralis fascia by suturing with 0-Surgilon. The pacemaker pocket was copiously irrigated with vancomycin solution. Complete hemostasis was achieved. Sponge counts were confirmed. The leads were attached to a Medtronic generator. The leads were positioned behind the generator and the generator was attached to the pectoralis fascia by suturing with 0-Surgilon. The pocket was closed in layers. Skin was approximated using 4-0 Vicryl. IMPLANTED DEVICES: ATRIAL LEAD: Model number: 5076/45 Serial number: [id number] Make: Medtronic VENTRICULAR LEAD: Model number: 5076/52 Serial number: [id number] Make: Medtronic GENERATOR Brand: [place] XT DR MRI SureScan Model number: W1 DR 01 Serial number: [id number] Make: Medtronic IMPLANTATION DATA: With the pacing system analyzer, the R wave sensing was 8.5 millivolts with a lead impedance of 532 and a pacing threshold was 0.875 volts at 0.4 milliseconds. In the atrium, the sensing was 2.2 millivolts with a lead impedance of 551 ohms and a pacing threshold was 0.625 volts at 0.4 milliseconds. Through the device, the R-wave sensing was 8.5 millivolts with a lead impedance of 855 and a pacing threshold was 0.75 volts at 0.4 milliseconds. The atrial sensing was 1.6 millivolts with a lead impedance of 532 ohms and a pacing threshold of 0.75 volts at 0.4 milliseconds. The pacemaker was set for AAIR/DDDR mode with upper rate of 130 and a lower rate of 60. A pressure dressing was applied over the pacemaker site. The patient was transferred to the Medical Floor in stable condition. A chest x-ray was ordered to confirm the lead position and also to rule out any pneumothorax.
[2024-04-12] MEDS: ceFAZolin 2,000 mg SDV 2000 MG IVP ×2 (16:06→23:45)
[2024-04-12] MEDS: aspirin 325 mg Tablet PO (17:29)
[2024-04-12] MEDS: baclofen 10 mg Tablet PO (17:29)
[2024-04-12] MEDS: sodium chloride 0.9% 1,000 ML 75 ML IV (17:30)
[2024-04-12] MEDS: HYDROcodone-acetaminophen 5-325 mg Tablet 1 TAB PO (19:51)
[2024-04-12] MEDS: escitalopram 10 mg Tablet 5 MG PO (19:51)
[2024-04-12] MEDS: atorvastatin 40 mg Tablet 20 MG PO (20:01)
[2024-04-12] MEDS: hyDROXYzine 25 mg Capsule 50 MG PO (20:01)
[2024-04-12] MEDS: hydroCHLOROthiazide 25 mg Tablet 12.5 MG PO (20:01)
[2024-04-13 00:13] VITALS: BP 139/57; PULSE 60; RESP 15; TEMP 36.8; O2SAT 94
[2024-04-13 00:15] VITALS: BP 139/57; PULSE 60; RESP 15; TEMP 36.8; O2SAT 94
[2024-04-13 04:15] VITALS: BP 161/71; PULSE 60; RESP 14; TEMP 36.7; O2SAT 93
--- NOTE | 2024-04-13 06:00 | ECG_ITS ---
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 Measurements Intervals [place] Rate: 60 P: 224 KS: 246 QRS: 54 QRSD: 100 T: 90 QT: 419 QTc: 419 Interpretive Statements ELECTRONIC ATRIAL PACEMAKER ABNORMAL RHYTHM ECG Compared to ECG 02/26/2024 11:29:54 Sinus bradycardia no longer present Sinus arrhythmia no longer present Electronically Signed On 04-13-2024 21:18:52 CDT by Yamilet Hamilton M.D. [id number]
--- NOTE | 2024-04-13 06:00 | XRR_ITS ---
PROCEDURE INFORMATION: Exam: XR Chest Exam date and time: 04/13/2024 8:58 AM Age: 78 years old Clinical indication: Device placement; Cardiac pacemaker placement or adjustment; Prior surgery; Surgery date: Post-operative (0-2 days); Additional info: Post permanent pacemaker placement; Visualize lead tip TECHNIQUE: Imaging protocol: Radiologic exam of the chest. Views: 1 view. COMPARISON: CR XR chest 1V portable [id number] 11/23/2019 4:31 AM FINDINGS: Tubes, catheters and devices: Tips of the left chest wall pacemaker project over the right atrium and right ventricle. Lungs: The lungs are clear. Pleural spaces: No pneumothorax or pleural effusion. Heart/Mediastinum: Heart size is enlarged. Mediastinal contours unremarkable. Bones/joints: No acute osseous or soft tissue abnormality. XR/XR chest 1V [id number] IMPRESSION: 1. The lungs are clear. 2. Cardiomegaly. 3. Left chest wall pacemaker.
[2024-04-13] MEDS: HYDROcodone-acetaminophen 5-325 mg Tablet 1 TAB PO (06:46)
[2024-04-13] MEDS: ceFAZolin 2,000 mg SDV 2000 MG IVP (06:47)
[2024-04-13 07:42] VITALS: BP 171/73; PULSE 59; RESP 18; TEMP 36.7; O2SAT 92
[2024-04-13] MEDS: hydroCHLOROthiazide 25 mg Tablet 12.5 MG PO (08:56)
[2024-04-13] MEDS: meloxicam 7.5 mg tablet PO (08:56)
[2024-04-13] MEDS: pantoprazole DR 40 mg Tablet PO (08:56)
[2024-04-13] MEDS: losartan 50 mg Tablet 25 MG PO (08:56)
[2024-04-13] MEDS: baclofen 10 mg Tablet PO (08:56)
--- NOTE | 2024-04-13 10:11 | P.PN_ITS ---
Subjective 2 Subjective: Patient is feeling okay. Has no hematoma bleeding at the pacemaker site. Chest x-ray shows no pneumothorax. Atrial and ventricular lead placement appears appropriate. The pacemaker was interrogated today. The pacing and sensing function are appropriate. Medications: Medication Review Details: Current Medications Hydrocodone Bitart/Acetaminophen (Hydrocodone-Acetaminophen 5-325 Mg Tablet) 1 tab PO Q6H PRN PRN Reason: pain Last Admin: 04/13/24 06:46 Dose: 1 tab Amlodipine Besylate (Amlodipine 5 Mg Tablet) 5 mg PO DAILY [facility] Last Admin: 04/13/24 08:59 Dose: Not Given Aspirin (Aspirin 325 Mg Tablet) 325 mg PO BID [facility] Last Admin: 04/13/24 08:59 Dose: Not Given Atorvastatin Calcium (Atorvastatin 40 Mg Tablet) 20 mg PO BEDTIME [facility] Last Admin: 04/12/24 20:01 Dose: 20 mg Baclofen (Baclofen 10 Mg Tablet) 10 mg PO BID [facility] Last Admin: 04/13/24 08:56 Dose: 10 mg Escitalopram Oxalate (Escitalopram 10 Mg Tablet) 5 mg PO DAILY@1900 [facility] Last Admin: 04/12/24 19:51 Dose: 5 mg Hydrochlorothiazide (Hydrochlorothiazide 25 Mg Tablet) 12.5 mg PO DAILY [facility] Last Admin: 04/13/24 08:56 Dose: 12.5 mg Hydroxyzine Pamoate (Hydroxyzine 25 Mg Capsule) 50 mg PO BEDTIME [facility] Last Admin: 04/12/24 20:01 Dose: 50 mg Sodium Chloride (Sodium Chloride 0.9%) 1,000 mls @ 75 mls/hr IV .[id number] [facility] Last Infusion: 04/13/24 06:52 Dose: Infused Losartan Potassium (Losartan 50 Mg Tablet) 25 mg PO DAILY [facility] Last Admin: 04/13/24 08:56 Dose: 25 mg Meloxicam (Meloxicam 7.5 Mg Tablet) 7.5 mg PO DAILY [facility] Last Admin: 04/13/24 08:56 Dose: 7.5 mg Oxybutynin Chloride (Oxybutynin Chloride Xl 5 Mg Tablet) 5 mg PO DAILY [facility] Last Admin: 04/13/24 08:59 Dose: Not Given Pantoprazole Sodium (Pantoprazole Dr 40 Mg Tablet) 40 mg PO DAILY [facility] Last Admin: 04/13/24 08:56 Dose: 40 mg Tramadol HCl (Tramadol 50 Mg Tablet) 50 mg PO TID PRN PRN Reason: Pain Vitals/I&O/Wt Last Vital Signs Temp 98.1 F 04/13/24 07:42 Pulse 59 L 04/13/24 07:42 Resp 18 04/13/24 07:42 BP 171/73 04/13/24 07:42 Pulse Ox 92 04/13/24 07:42 O2 Del Method Room Air 04/13/24 07:42 04/12/24 04/13/24 04/13/24 22:59 06:59 14:59 Intake Total 390 / 630 1000 / 1630 Balance 390 / 630 1000 / 1630 Weight last 48 hrs Weight 147 lb 3.2 oz Weight 138 lb Weight 138 lb Physical Exam 2 Narrative: GENERAL: The patient is alert and oriented times three. Not in any acute distress. HEENT: No significant pallor, icterus or lymphadenopathy.Oral cavity: There are no mucous membrane lesions. NECK: Trachea appears to be central. No masses noted. No JVD or thyromegaly appreciated. RESPIRATORY: Chest is symmetrical. No intercostals muscle retraction or any accessory muscle activation. There is no chest wall tenderness. Breath sounds are heard bilaterally. No rales or rhonchi heard. No evidence of any consolidation. The pacemaker insertion site has no hematoma bleeding. BREASTS: Deferred. HEART: The heart sounds are normal. No S3 or S4. No significant murmurs. No pericardial rub ABDOMEN: No vessel pulsations or distention. No tenderness. No organomegaly appreciated. Bowel sounds are normally heard. : Deferred. RECTAL: Deferred. LYMPHATIC: No lymphadenopathy noted in the neck. EXTREMITIES: No edema or cyanosis. No clubbing. MUSCULOSKELETAL: No acute joint deformities or swelling SKIN: There are no significant rashes or ecchymosis NEUROPSYCHIATRIC: The patient is alert and oriented x3. Appears to be in a good mood. No tremors or rigidity noted. Data 04/12/24 06:15 04/12/24 06:15 Other Labs: Laboratory Last Values WBC 7.21 10^3/uL (3.29-11.43) 04/12/24 06:15 RBC 5.06 10^6/uL (3.85-5.65) 04/12/24 06:15 Hgb 14.10 g/dL (11.27-16.99) 04/12/24 06:15 Hct 43.6 % (36-47) 04/12/24 06:15 MCV 86.2 fl (85-98) 04/12/24 06:15 MCH 27.9 pg (27-33) 04/12/24 06:15 MCHC 32.3 g/dL (30-55) 04/12/24 06:15 RDW 13.1 % (12.1-15.1) 04/12/24 06:15 Plt Count 240 10^3/cmm (157-399) 04/12/24 06:15 MPV 10.9 fL (7.4-10.4) H 04/12/24 06:15 Neut % (Auto) 60.0 % 04/12/24 06:15 Lymph % (Auto) 28.8 % 04/12/24 06:15 Foard % (Auto) 7.5 % 04/12/24 06:15 Eos % (Auto) 3.1 % 04/12/24 06:15 Baso % (Auto) 0.3 % 04/12/24 06:15 Neut # (Auto) 4.33 10^3/uL (1.8-7.7) 04/12/24 06:15 Lymph # (Auto) 2.1 10^3/uL (0.8-4.8) 04/12/24 06:15 Foard # (Auto) 0.5 10^3/uL (0.2-0.9) 04/12/24 06:15 Eos # (Auto) 0.2 10^3/uL (0.0-0.8) 04/12/24 06:15 Baso # (Auto) 0.0 10^3/uL (0.0-0.1) 04/12/24 06:15 Nucleated RBC % (auto) 0 % 04/12/24 06:15 Nucleated RBCs # 0.0 /100WBC 04/12/24 06:15 Sodium 140 mmol/L (136-145) 04/12/24 06:15 Potassium 3.8 mmol/L (3.5-5.1) 04/12/24 06:15 Chloride 101 mmol/L (98-107) 04/12/24 06:15 Carbon Dioxide 29 mmol/L (22-29) 04/12/24 06:15 Anion Gap 13.8 (5-19) 04/12/24 06:15 BUN 24 mg/dL (8-23) H 04/12/24 06:15 Creatinine 1.1 mg/dL (0.5-0.9) H 04/12/24 06:15 GFR Calculation Not Reportable 04/12/24 06:15 Glucose 89 mg/dL (65-115) 04/12/24 06:15 Calculated Osmolality 294 mOsm/kg (285-295) 04/12/24 06:15 Calcium 9.9 mg/dL (8.5-10.5) 04/12/24 06:15 A&P Assessment and plan (1) Presence of permanent cardiac pacemaker: Pacemaker function is found to be appropriate. I reviewed the interrogation report. (2) Hypertension: Currently normotensive. May continue the current medication. Qualifiers: Hypertension type: primary hypertension Qualified Code(s): I10 - Essential (primary) hypertension (3) Hyperlipidemia: Continue on the current management. Qualifiers: Hyperlipidemia type: mixed hyperlipidemia Qualified Code(s): E78.2 - Mixed hyperlipidemia (4) Symptomatic bradycardia: The pacemaker was set for a low rate of 60 and upper rate of 130. Plan If the patient continues to remain stable, will be discharged home today. The patient is given the following instructions Limit the movements of the left shoulder to 45 degrees. Avoid any weightbearing on the left elbow for the next 6 weeks. Keep the pacemaker site clean and dry. Please take the antibiotic and the multivitamins as prescribed Appointment the [facility] to be seen by the nurse practitioner in a week. Keep the sterile dressing on till you come to the clinic in a week Appointment with me in the office in 3 weeks Attestations 2 Medical Necessity Statement*: Discharge home today Coding Level of Care Code 79217 Diagnoses Presence of permanent cardiac pacemaker Z95.0 Primary hypertension I10 Hypertension type: primary hypertension Mixed hyperlipidemia E78.2 Hyperlipidemia type: mixed hyperlipidemia Symptomatic bradycardia R00.1
[2024-04-13 11:39] VITALS: BP 160/79; PULSE 62; TEMP 36.5; O2SAT 97
== END 2024-04-13 12:19 | disposition home or self-care (01) ==
LOC: CCL 06:02 → MEDSURG 11:14
PROVIDERS: PCP Electrodiagnostic Medicine; Visit Provider Internal Medicine Cardiovascular Disease
DX: I49.5 Sick sinus syndrome (principal); R00.1 Bradycardia, unspecified; I10 Essential (primary) hypertension; E78.2 Mixed hyperlipidemia; Z79.82 Long term (current) use of aspirin
CPT/HCPCS: 33208; 36415; 71045; 80048; 85025; 96374; 97165; 99152; 99153; C1769; C1779; C1786; C1894; J0690; J2250; J3010; J3370; J7030; J7050; Q9967

== ENCOUNTER → 2024-04-18 10:12 | Outpatient (BNVA) | payer MEDICARE, OTHER, SELFPAY | PROVIDERS: PCP Electrodiagnostic Medicine; Visit Provider Nurse Practitioner Family | DX: R00.1 Bradycardia, unspecified (principal); Z95.0 Presence of cardiac pacemaker | CPT/HCPCS: 99213 ==

== ENCOUNTER → 2024-04-24 09:19 | Outpatient (BNVA) | payer MEDICARE, OTHER, SELFPAY | PROVIDERS: PCP Electrodiagnostic Medicine; Visit Provider Internal Medicine Cardiovascular Disease | DX: Z45.010 Encounter for checking and testing of cardiac pacemaker pulse generator [battery] (principal) | CPT/HCPCS: 93296 ==

== ENCOUNTER → 2024-08-16 08:34 | Outpatient (BNVA) | payer MEDICARE, OTHER, SELFPAY | PROVIDERS: PCP Electrodiagnostic Medicine; Visit Provider Nurse Practitioner Family | DX: I10 Essential (primary) hypertension (principal); Z95.0 Presence of cardiac pacemaker | CPT/HCPCS: 99213 ==

== ENCOUNTER → 2024-12-23 11:35 | Outpatient (BNVA) | payer MEDICARE, OTHER, SELFPAY | PROVIDERS: PCP Electrodiagnostic Medicine; Visit Provider Internal Medicine Cardiovascular Disease | DX: E78.2 Mixed hyperlipidemia (principal); I10 Essential (primary) hypertension; Z79.82 Long term (current) use of aspirin; Z95.0 Presence of cardiac pacemaker | CPT/HCPCS: 99214 ==

== ENCOUNTER → 2025-01-02 08:49 | Outpatient (BNVA) | payer MEDICARE, OTHER, SELFPAY | PROVIDERS: PCP Electrodiagnostic Medicine; Visit Provider Podiatrist Foot & Ankle Surgery | DX: L60.8 Other nail disorders (principal); L60.0 Ingrowing nail | CPT/HCPCS: 11750; J9999 ==

== ENCOUNTER → 2025-01-16 09:39 | Outpatient (BNVA) | payer MEDICARE, OTHER, SELFPAY | PROVIDERS: PCP Electrodiagnostic Medicine; Visit Provider Podiatrist Foot & Ankle Surgery | DX: L60.3 Nail dystrophy (principal); L03.115 Cellulitis of right lower limb | CPT/HCPCS: 99214 ==

== ENCOUNTER → 2025-01-29 12:54 | Outpatient (BNVA) | payer MEDICARE, OTHER, SELFPAY | PROVIDERS: PCP Electrodiagnostic Medicine; Visit Provider Internal Medicine Cardiovascular Disease | DX: Z45.018 Encounter for adjustment and management of other part of cardiac pacemaker (principal) | CPT/HCPCS: 93296 ==

== ENCOUNTER → 2025-01-31 12:46 | Outpatient (BNVA) | payer MEDICARE, OTHER, SELFPAY | PROVIDERS: PCP Electrodiagnostic Medicine; Visit Provider Podiatrist Foot & Ankle Surgery | DX: L03.116 Cellulitis of left lower limb (principal); Z98.890 Other specified postprocedural states; L08.9 Local infection of the skin and subcutaneous tissue, unspecified | CPT/HCPCS: 87070; 87075; 87077; 87186; 87205; 99213 ==